=== PATIENT | male | born 1975 | race American Indian/Alaskan Native ===

== ENCOUNTER 2017-08-08 22:36 | Emergency (ER) | payer SELFPAY ==
[2017-08-08 23:22] VITALS: BP 136/93
== END 2017-08-08 23:32 | disposition left against medical advice (07) ==
LOC: ED 22:36
DX: R11.10 Vomiting, unspecified (principal); Z53.21 Procedure and treatment not carried out due to patient leaving prior to being seen by health care provider
CPT/HCPCS: 93005; 93010